=== PATIENT | female | born 1940 | race Caucasian/White ===

== ENCOUNTER 2019-08-11 20:06 | Emergency (ER) | END 2019-08-11 22:23 | disposition home or self-care (01) | DX: S42.291A Other displaced fracture of upper end of right humerus, initial encounter for closed fracture (principal); E03.9 Hypothyroidism, unspecified; Z88.2 Allergy status to sulfonamides; Z79.899 Other long term (current) drug therapy; W10.9XXA Fall (on) (from) unspecified stairs and steps, initial encounter; Y93.89 Activity, other specified; Y92.89 Other specified places as the place of occurrence of the external cause; Y99.8 Other external cause status | CPT/HCPCS: 29105; 73030; 96372 ×2; 99283; J1170; J1200 ==